=== PATIENT | female | born 1965 | race Two or more races ===

== ENCOUNTER 2016-11-02 23:32 | Emergency (ER) | payer MEDICAID ==
[~2016-11-02] VITALS: Ht 157.5 cm; Wt 85.7 kg
[2016-11-03 00:38] LABS: Urine Bilirubin Negative (Negative); Urine Color Yellow (Yellow); Urine Glucose Normal (Normal); Urine Ketone Negative (Negative); Urine Mucus FEW (None Seen); Urine Nitrite Negative (Negative); Urine RBC 115 /hpf (0 - 4); Urine Squamous Epithelial Cell FEW /hpf (<5); Urine Urobilinogen Normal (Negative); Urine WBC Clumps PRESENT /hpf (None Seen)
[2016-11-03 00:43] LABS: Urine Blood 2+ /uL (Negative)
[2016-11-03 00:54] VITALS: BP 152/92
[2016-11-03] MEDS ORDERED: IBUPROFEN 600 MG TAB PO ONE (01:30)
[2016-11-03] MEDS ORDERED: cefTRIAXone SOD 1,000 MG VL IM ONE (01:30)
== END 2016-11-03 01:57 | disposition home or self-care (01) ==
LOC: ER 23:32
DX: N39.0 Urinary tract infection, site not specified (principal); Z88.8 Allergy status to other drugs, medicaments and biological substances
CPT/HCPCS: 81001; 96372; 99283; J0696

== ENCOUNTER → 2018-09-04 | Outpatient (CLI) | payer MEDICAID ==
[2018-09-04 16:32] LABS: Urine Blood Negative /uL (Negative); Urine Specific Gravity 1.009 (1.001-1.035)
[2018-09-04 16:44] LABS: Basophils # (auto) 0.1 uL; Basophils % (auto) 0.9 % (0.0-2.0); Eosinophils # (auto) 0.1 uL; Eosinophils % (auto) 1.6 % (0.0-7.0); Hematocrit 43.8 % (36.0-46.0); Hemoglobin 14.2 g/dL (12.2-16.2); Lymphocytes # (auto) 2.1 uL; Mean Corpuscular Hemoglobin 29.6 pg (28.0-32.0); Mean Corpuscular Hgb Conc. 32.4 g/dL (32.0-36.0); Mean Corpuscular Volume 91.4 fL (80.0-100.0); Monocytes # (auto) 0.4 uL; Monocytes % (auto) 6.2 % (0.0-12.0); Neutrophils # (auto) 3.2 uL; Neutrophils % (auto) 55.3 % (37.0-80.0); Nucleated Red Blood Cells % 0.6 %; Platelet Count (auto) 253 10^3/uL (140-450); Red Blood Cells 4.79 10^6/uL (4.0-5.20); Red Cell Distribution Width 14.4 % (11.8-14.3); White Blood Cell 5.8 10^3/uL (4.4-10.8)
[2018-09-04 16:52] LABS: Albumin 4.2 g/dL (3.4-5.0); Potassium 4.2 mmol/L (3.5-5.1)
[2018-09-04 17:02] LABS: BUN/Creatinine Ratio 16.2; Bilirubin, Direct 0.1 mg/dL (0-0.2); Bilirubin, Total 0.5 mg/dL (0.2-1.0); Calcium 9.6 mg/dL (8.5-10.1)
== END | disposition home or self-care (01) ==
LOC: LAB 11:35
PROVIDERS: ATTEND Internal Medicine Cardiovascular Disease
DX: Z13.1 Encounter for screening for diabetes mellitus (principal); E03.9 Hypothyroidism, unspecified; E55.9 Vitamin D deficiency, unspecified; N39.0 Urinary tract infection, site not specified
CPT/HCPCS: 36415; 80048; 80061; 80076; 81003; 82306; 83036; 84443; 85025; 87086

== ENCOUNTER → 2018-10-16 | Outpatient (CLI) | payer MEDICAID, OTHER ==
[~2018-10-16] VITALS: Ht 157.5 cm; Wt 83.9 kg
[2018-10-16 12:11] LABS: Urine Blood Negative /uL (Negative); Urine Specific Gravity 1.006 (1.001-1.035)
== END | disposition home or self-care (01) ==
LOC: Rad HDHVI 08:27
PROVIDERS: ATTEND Internal Medicine Cardiovascular Disease
DX: N39.0 Urinary tract infection, site not specified (principal); E78.5 Hyperlipidemia, unspecified; R06.02 Shortness of breath; E66.9 Obesity, unspecified; I10 Essential (primary) hypertension
CPT/HCPCS: 78452; 81003; 93017; 93306; 96374; A9500